=== PATIENT | female | born 1950 | race Caucasian/White ===

== ENCOUNTER 2018-08-18 12:26 | Emergency (ER) | payer MEDICARE ==
[2018-08-18 13:11] VITALS: BP 129/70
--- NOTE | 2018-08-18 14:47 | Ultrasound Report ---
Reason: pain behind knee and calf Procedure Date: 08/18/2018 Accession Number: [id number] / [id number] Procedure: US - Duplex Ext Veins Right CPT Code: FULL RESULT: EXAM: RIGHT LOWER EXTREMITY VENOUS ULTRASOUND EXAM DATE: 08/18/2018 02:12 PM. CLINICAL HISTORY: Pain behind knee and calf. COMPARISON: None. TECHNIQUE: Real-time sonographic vascular imaging was performed by the b2b sales executive through the lower extremity utilizing both color-flow and Doppler spectral analysis. Multiple operations support representative static images were saved for review. FINDINGS: Common Femoral Vein (CFV): Normal. CFV-GSV Junction: Normal. Profunda Femoral Vein (PFV): Normal. Femoral Vein (FV) Prox: Normal. Femoral Vein (FV) Mid: Normal. Femoral Vein (FV) Dist: Normal. Popliteal Vein: Normal. Posterior Tibial Veins: Normal. Peroneal Veins: Normal. Contralateral Side CFV: Normal. Other: None. IMPRESSION: No evidence for deep venous thrombosis. RADIA
--- NOTE | 2018-08-18 14:59 | ED Physician Documentation ---
PD HPI LOWER EXT INJURY - Stated complaint Stated Complaint: LEG/ KNEE PX - Chief complaint Chief Complaint: General - History obtained from History obtained from: Patient - History of Present Illness PD HPI LOW EXT INJURY LOCATION: Right, Knee Type of injury: No: Fall, Twist Timing - onset: How many weeks ago (couple of weeks of pain in back of knee, worse with walking. Hurting much more the past few days.) Timing - duration: Weeks Timing - details: Gradual onset, Still present, Waxing and waning Worsened by: Moving, Other (walking/weight bearing) Associated symptoms: No: Weakness, Numbness, Swelling Similar symptoms before: Has not had sx before Review of Systems Constitutional: denies: Fever, Chills Nose: denies: Rhinorrhea / runny nose, Congestion Throat: denies: Sore throat Respiratory: denies: Cough GI: denies: Nausea, Vomiting Skin: denies: Rash, Lesions Neurologic: denies: Focal weakness, Numbness PD PAST MEDICAL HISTORY - Past Medical History Respiratory: Pneumonia GI: GERD Psych: Depression - Past Surgical History Past Surgical History: Yes 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 - Present Medications Home Medications: Ambulatory Orders Medication Instructions Recorded Confirmed Omeprazole [PriLOSEC] 09/08/15 09/08/15 buPROPion [Wellbutrin Xl] 09/08/15 09/08/15 traZODone [Desyrel] 09/08/15 09/08/15 Dexamethasone [Decadron] 4 mg PO DAILY #5 tablet 08/18/18 Oxycodone HCl/Acetaminophen 1 each PO Q6H PRN #20 tablet 08/18/18 [Percocet 5-325 mg Tablet] - Allergies Allergies/Adverse Reactions: Allergies Allergy/AdvReac Type Severity Reaction Status Date / Time codeine Allergy Unknown Verified 08/18/18 13:11 meperidine HCl * Allergy Unknown Verified 08/18/18 13:11 [From Demerol] - Social History Does the pt smoke?: No Smoking Status: Never smoker Does the pt drink ETOH?: No Does the pt have substance abuse?: No PD ED PE NORMAL - Vitals Vital signs reviewed: Yes - General General: Alert and oriented X 3, No acute distress, Well developed/nourished - Back Back: No spinal TTP - Derm Derm: Normal color, Warm and dry, No rash - Extremities Extremities: No edema, Other (right back of knee with some tenderness. No swelling. Anterior knee without swelling, redness, nor effusion. No calf tenderness. ). No: Normal ROM s pain (hurts with full extension. Flexion does not hurt as much. ) - Neuro Neuro: Alert and oriented X 3, No motor deficit, No sensory deficit, Normal speech Results - Vitals Vitals: Oxygen O2 Source Room air - Rads (name of study) duplex leg Radiology: Prelim report reviewed (no DVT) xray knee right Radiology: Prelim report reviewed (mild to moderate arthritic changes; no acute) PD MEDICAL DECISION MAKING - ED course Complexity details: considered differential, d/w patient Departure - Departure Disposition: Home, Self Care Clinical Impression: Right knee pain Qualifiers: Chronicity: acute Qualified Code(s): M25.561 - Pain in right knee Condition: Stable Record reviewed to determine appropriate education?: Yes Instructions: ED Knee Pain [facility]O Follow-Up: Mars Eduardo MD [Primary Care Provider] - [facility] [Provider Group] Prescriptions: Dexamethasone [Decadron] 4 mg PO DAILY #5 tablet Oxycodone HCl/Acetaminophen [Percocet 5-325 mg Tablet] 1 each PO Q6H PRN #20 tablet PRN Reason: Pain Comments: Use a walker to help support the weight for the knee. There is some arthritis changes on the x-ray. There is no obvious fracture. We cannot see the ligaments and cartilage on the plain x-ray and I presume there is some inflammation of those. Continue some Aleve 2-3 tablets twice a day for the next several days. Add Decadron also an anti-inflammatory daily for 5 more days. At Percocet pain medicine if needed for pain. Follow-up with orthopedics if not improving over the next several days, call for an appointment. Discharge Date/Time: 08/18/18 17:00
[2018-08-18] MEDS ORDERED: ACETAMINOPHEN 325 MG TABLET PO STA (15:21)
[2018-08-18] MEDS ORDERED: KETOROLAC 30 MG/ML VIAL IM STA (15:21)
[2018-08-18] MEDS ORDERED: DEXAMETHASONE 10 MG/ML VIAL PO STA (15:21)
[2018-08-18] MEDS ORDERED: CHERRY SYRUP 10 ML UDC PO ONE (15:26)
--- NOTE | 2018-08-18 16:38 | XRAY Report ---
Reason: knee pain for few days Procedure Date: 08/18/2018 Accession Number: [id number] / [id number] Procedure: XR - Knee 3 View RT CPT Code: FULL RESULT: EXAM: RIGHT KNEE RADIOGRAPHY EXAM DATE: 08/18/2018 03:48 PM. CLINICAL HISTORY: Right knee pain. COMPARISON: KNEE 4 VIEW BILAT 07/30/2014 12:19 PM. TECHNIQUE: 3 views. FINDINGS: Bones: No fracture. Joints: Minimal to mild tricompartmental DJD is seen. No effusion. Soft Tissues: Unremarkable. IMPRESSION: No acute findings. RADIA
== END 2018-08-18 17:00 | disposition home or self-care (01) ==
LOC: ED 12:26
DX: M25.561 Pain in right knee (principal); Z96.659 Presence of unspecified artificial knee joint
CPT/HCPCS: 73562; 93971; 96372; 99283; A9270

== ENCOUNTER 2019-04-04 09:49 | Outpatient (CLI) | payer MEDICARE ==
[2019-04-04] MEDS ORDERED: GADOBUTROL 15 MMOL/15 ML VIAL IV ONE (11:35)
--- NOTE | 2019-04-04 17:12 | MRI Report ---
Reason: LUMBAR RADICULPATHY RIGHT Procedure Date: 04/04/2019 Accession Number: [id number] / [id number] Procedure: MRI - Lumbar Spine W/WO CPT Code: FULL RESULT: EXAM: MRI LUMBAR SPINE WITHOUT AND WITH CONTRAST EXAM DATE: 04/04/2019 11:30 AM. CLINICAL HISTORY: Right lumbar radiculopathy. Bilateral leg weakness. Tingling and numbness bilaterally. COMPARISONS: None. TECHNIQUE: Multiplanar, multisequence T1-weighted and fluid-sensitive sequences of the lumbar spine from T12 to S1 before and after administration of intravenous contrast. Other: None. IV contrast: 11.5 cc Gadavist. FINDINGS: A vertebral body hemangioma is seen at T12. No suspicious marrow replacement is present. Minimal grade 1 anterolisthesis of L4 relative to L5 is present. No abnormal signal or enhancement is present in the conus medullaris. L1-L2: Minimal posterior disk protrusion. L2-L3: Minimal posterior disk protrusion. L3-L4: There is a shallow far lateral protrusion on the right. L3-L4: There is a shallow far lateral protrusion on the right. Superior lateral recess narrowing is seen bilaterally. L4-L5: No posterior disk protrusion. Superior lateral recess narrowing is seen bilaterally. L5-S1: No posterior disk protrusion. Facet/ligamentum flavum hypertrophy which is moderate to severe is present in the mid and lower lumbar spine. IMPRESSION: 1. Minimal degenerative disk disease at L1-L2, L2-L3, and L3-L4. 2. No central canal or foraminal stenosis. 3. Moderate to severe facet/ligamentum flavum hypertrophy is seen in the mid and lower lumbar spine. Comment: The following findings are so common in adults without low back pain that while we report their presence, they must be interpreted with caution and in the context of the clinical situation. (Reference Louisak et al, Spine 2001) Prevalence of findings in patients without low back pain: Disk degeneration (any evidence): 92% Disk desiccation/T2 signal loss: 83% Disk height loss: 56% Disk bulge: 64% Disk protrusion: 32% Annular tear/high intensity zone: 38% RADIA
== END 2019-04-04 09:50 | disposition home or self-care (01) ==
LOC: DI 09:49
PROVIDERS: ATTEND Specialist
DX: M51.16 Intervertebral disc disorders with radiculopathy, lumbar region (principal)
CPT/HCPCS: 72158

== ENCOUNTER 2020-07-15 13:14 | Outpatient (CLI) | payer MEDICARE ==
--- NOTE | 2020-07-15 16:50 | SLEEP CARE CONSULTATION ---
Information from patient questionnaire entered by Magdalena Haji. I have reviewed and concur with the information entered by Magdalena Haji. This document represents the service I personally performed and the decisions made by me, Ata Jo MD, [facility]. History of Present Illness Service Date and Time: 07/15/2020 1314 Reason for Visit: New patient Chief Complaint: reports: Unrefreshed sleep, Fatigue, Frequent awakenings at night Date of Onset: years - a long time Usual bedtime: 2300 Time it takes to fall asleep: minutes Snores at night: Yes (sometimes) Observed to quit breathing while asleep: No Number of times waking at night: 2 Reasons for waking at night: reports: Bathroom, Other (get comfortable, remake bed, take sleep clothers off) Recalls having dreams: Yes Usually gets out of bed at: 0730 Feels refreshed in the morning: No Morning headache: No Sleepy or fatigued during the day: Yes Ever fallen asleep while driving: No Takes day naps: Yes (sometimes) Dreams during day naps: No Prior sleep studies: No Additional HPI information: I had the pleasure of seeing Ms. Lucio today regarding the possibility of her having a sleep disorder. As you know, she is a 69 year old lady who complains of frequent awakenings, unrefreshed sleep, and persistent fatigue for the past several years. The patient tells me that she normally goes to bed around 11 pm, and it takes her approximately just a few minutes to fall asleep. She takes trazodone and diphenhydramine nightly. She was first prescribed with trazodone over 10 years ago. The few times she tried to not take the medication, she lay awake all night. She snores occasionally. She has never been observed to stop breathing in her sleep. Her spouse has to sleep in a separate room because he snores loudly. She can recall waking up on the average of 2 times during the night. Most of the time she wakes up because of having to use the bathroom. She has awakened occasionally because of her own snoring, choking, and having to gasp for air. There is not a lot of tossing and turning in her sleep. No somniloquy (sleep talking) or somnambulism (sleep walking). Generally she can recall having dreams. In the morning she usually gets up out of the bed around 7:30 a.m. not feeling refreshed nor rested. She usually does not have a morning headache. During the day she complains of feeling sleepy and fatigued. Her score on Albertson Sleepiness Scale is 6 out of 24. She has never fallen asleep while driving nor has had any accident due to sleepiness. She usually does not take naps during the day. Upon falling asleep during the day she denies having vivid dreams. She has never had sleep paralysis, experienced cataplexy but reports symptoms of restless leg syndrome. She denies having impaired concentration during the day. Subjective Initial Albertson Sleepiness Scale score: 6 (in 2019) Past Medical History Past Medical History: reports: Claustrophobia, Anxiety, Depression, GERD Social History The patient's occupation is retired. Patient is and lives in [place]. Have you smoked in the past 12 months: No Alcohol use: No Caffeine use: Yes Caffeine amount and frequency: 3 big cups Allergies and Home Medications Drug allergies reviewed: Yes (codeine) Home medication list reviewed: Yes (bupropion, trazodone, diphenhydramine) Review of Systems Weight loss over past 5 years: 40 Cardiovascular: reports: chest pain (due to reflux) Respiratory: reports: shortness of breath, chronic cough (every morning) Gastrointestinal: reports: heartburn Urinary: denies: incontinence, frequency, urgency, impotence, other Neurological: reports: gait or balance problems (*balance) Psychiatric: reports: anxiety, depression, claustrophobia Ear/Nose/Throat: reports: hoarseness, tonsillectomy (1973), wisdom teeth removed Endocrine: reports: sluggishness, too hot or cold Musculoskeletal: reports: joint pain, neck pain, back pain, muscle pain or cramping (at night back of thigh cramping) Immunologic: reports: sneezing, allergies to food or environment (spring) Physical Exam Vital signs obtained and entered by: To minimize the risk of COVID-19 exposure, detailed exam was not performed. Height: 5 ft 6 in Impression and Plan IMPRESSION: 1. Obstructive Sleep Apnea-Hypopnea Syndrome, as suggested by history of snoring, unrefreshed sleep, and fatigue. Narrow oropharynx and obesity are common predisposing factors for obstructive sleep apnea-hypopnea syndrome. Pathophysiology of sleep-disordered breathing was discussed. I recommend proceeding to polysomnography to confirm the diagnosis and to assess severity. If she has significant sleep disordered breathing, a manual CPAP titration study will also be performed to find the optimal treatment pressure. I informed the patient of what the sleep studies involve and after some discussion, she agreed to proceed. 2. Insomnia, partly due to excessive time spent in bed. She also has dependency on trazodone and [id number] diphenhydramine. Stopping the medications abruptly can cause temporary insomnia, especially when the underlying habits have not been changed. I recommend she first limit time spent in bed to 7.5 hoursthe same amount she was able to function fine when working. This means getting out of bed no later than 6:30 am. Once the new sleep-wake schedule is established, the medications can come off slowly over weeks/months. Plan: 1. Schedule an in-laboratory polysomnography. 2. Go to bed the same time at 11 pm but get up no later than 6:30 am. 3. Continue with trazodone and diphenhydramine for the time being. 4. Attempt to lose weight. 5. Return in 1 to 2 weeks after the study to discuss results and initiate therapy. Visit Type: In Office Time Spent with Patient (minutes): 15 Provider Statement: I spent 100% of the Face to Face Visit with the patient with greater than 50% spent counseling the patient and coordination of care.
== END 2020-07-15 13:15 | disposition home or self-care (01) ==
LOC: SC 13:14
PROVIDERS: ATTEND Internal Medicine Pulmonary Disease
DX: G47.00 Insomnia, unspecified (principal); R06.83 Snoring; R53.83 Other fatigue; G47.8 Other sleep disorders
CPT/HCPCS: 99203; G0463; 99212

== ENCOUNTER 2021-09-08 08:15 | Outpatient (CLI) | payer MEDICARE ==
--- NOTE | 2021-09-08 09:03 | XRAY Report ---
PROCEDURE: Foot 3 View BILAT INDICATIONS: PAIN IN LEFT AND RIGHT FOOT TECHNIQUE: 3 views of the foot were acquired. COMPARISON: None FINDINGS: Bones: No fractures or dislocations. No suspicious bony lesions. Mild to moderate scattered IP gilson nt space narrowing. No erosions. No periarticular osteophytes. Appearance is relatively symmetric. Soft tissues: No tibiotalar joint effusion. Achilles tendon appears normal. IMPRESSION: Mild to moderate arthritic IP joint space narrowing as above. Reviewed by: Connie Linda MD on 09/08/2021 9:02 AM PST Approved by: Connie Linda MD on 09/08/2021 9:02 AM PST Station ID: [id number]
== END 2021-09-08 08:16 | disposition home or self-care (01) ==
LOC: DI 08:15
PROVIDERS: ATTEND Physician Assistant
DX: M19.072 Primary osteoarthritis, left ankle and foot (principal); M19.071 Primary osteoarthritis, right ankle and foot

== ENCOUNTER 2022-02-08 07:08 | Outpatient (CLI) | payer MEDICARE ==
--- NOTE | 2022-02-08 14:51 | XRAY Report ---
PROCEDURE: Shoulder 3 View LT INDICATIONS: L SHOULDER PAIN TECHNIQUE: 3 views of the shoulder were acquired. COMPARISON: None. FINDINGS: Bones: No fractures or dislocations. Mild AC joint hypertrophy. Subacromial spur. Mild glenohumeral joint degenerative change. No suspicious bony lesions. Visualized ribs appear intact. Soft tissues: No suspicious soft tissue calcifications. IMPRESSION: AC joint hypertrophy, subacromial spur, glenohumeral joint degenerative change. No evide nce acute bony abnormality of the left shoulder. If clinical suspicion and/or symptoms persist, further assessment with repeat plain films or advanced imaging (e.g., CT, MRI, or bone scan) may be helpful for further assessment. Reviewed by: Jimy Tucker MD on 02/08/2022 2:49 PM PDT Approved by: Jimy Tucker MD on 02/08/2022 2:49 PM PDT Station ID: [id number]
== END 2022-02-08 07:09 | disposition home or self-care (01) ==
LOC: DI 07:08
PROVIDERS: ATTEND Internal Medicine
DX: M19.012 Primary osteoarthritis, left shoulder (principal); M75.92 Shoulder lesion, unspecified, left shoulder; M89.412 Other hypertrophic osteoarthropathy, left shoulder

== ENCOUNTER 2022-09-21 12:38 | Outpatient (CLI) | payer MEDICARE ==
--- NOTE | 2022-09-21 13:35 | CT Report ---
PROCEDURE: HEAD WO INDICATIONS: FALL ON HEAD, HEAD PAIN TECHNIQUE: Noncontrast 4.5 mm thick angled axial sections acquired from the foramen magnum to the vertex. For r adiation dose reduction, the following was used: automated exposure control, adjustment of mA and/or kV according to patient size. COMPARISON: None. FINDINGS: Image quality: Excellent. CSF spaces: Basal cisterns are patent. No extra-axial fluid collections. Ventricles are normal in size and shape. Brain: No midline shift. No intracranial masses or hemorrhage. Gale-white matter interface is norm al. Subcortical and periventricular hypodensities are consistent with microvascular ischemic dis ease and age-related cerebral volume loss. Skull and face: Calvarium and visualized facial bones are intact, without suspicious lesions. Sinuses: Visualized sinuses and mastoids are clear. IMPRESSION: 1. No acute intracranial abnormality. 2. Microvascular ischemic disease and age-related cerebral volume loss. Reviewed by: Mamadou Piedra on 09/21/2022 1:34 PM [facility] Approved by: Mamadou Piedra on 09/21/2022 1:34 PM [facility] Station ID: [id number]
--- NOTE | 2022-09-21 13:39 | XRAY Report ---
PROCEDURE: Cervical Spine Complete INDICATIONS: FALL ON HEAD, HEAD PAIN TECHNIQUE: 4 views of the cervical spine acquired. COMPARISON: None. FINDINGS: Bones: No fractures or dislocations to the vertebra level. Oblique images demonstrate no bony fora esdras stenoses. Multilevel degenerative changes with anterior osteophytes at multiple levels with lar ge osteophytes at C4-5 which protrude anteriorly. There is facet arthrosis of the cervical spine. Soft tissues: No prevertebral soft tissue swelling. IMPRESSION: 1. Multilevel degenerative changes of the cervical spine as detailed above. 2. No acute abnormality. Reviewed by: Mamadou Piedra on 09/21/2022 1:38 PM PST Approved by: Mamadou Piedra on 09/21/2022 1:38 PM [facility] Station ID: [id number]
== END 2022-09-21 12:39 | disposition home or self-care (01) ==
LOC: DI 12:38
PROVIDERS: ATTEND Student in an Organized Health Care Education/Training Program
DX: S09.90XA Unspecified injury of head, initial encounter (principal); R51.9 Headache, unspecified; G31.89 Other specified degenerative diseases of nervous system; I67.82 Cerebral ischemia; M47.812 Spondylosis without myelopathy or radiculopathy, cervical region

== ENCOUNTER 2022-09-21 12:40 | Outpatient (CLI) | payer MEDICARE ==
--- NOTE | 2022-09-23 09:48 | Mammography Report ---
BILATERAL DIGITAL SCREENING MAMMOGRAM 3D/2D: 09/21/2022 CLINICAL: Routine screening. Comparison is made to exams dated: 07/30/2014 mammogram, 12/27/2011 mammogram, and 09/15/2009 mammogr am - [facility]. There are scattered areas of fibroglandular density in both breasts (category b / 25%-50% glandular t issue). No significant masses, calcifications, or other findings are seen in either breast. There has been no significant interval change. IMPRESSION: NEGATIVE There is no mammographic evidence of malignancy. A 1 year screening mammogram is recommended. Based on the Tyrer Cuzick model (a risk assessment model) the patients lifetime risk is 6.2% and her 10 year risk is 3.6%. According to the ACR, ACS, and NCCN guidelines, an annual breast MRI exam ellen g with mammogram is recommended if the patients lifetime risk is 20% or greater. This exam was interpreted at Station ID: [id number]. NOTE: For mammograms, a report in lay terms will be sent to the patient. Approximately 15% of breast malignancies will not be visualized mammographically. In the management of a palpable breast mass, a negative mammogram must not discourage biopsy of a clinically suspicious lesion. Electronically Signed By: Kassi de jesus/shar:09/22/2022 12:12:45 ACR BI-RADS Category 1: Negative 3341F PARENCHYMAL PATTERN: (A) - The breast(s) demonstrate(s) scattered fibroglandular densities. BI-RADS CATEGORY: (1) - 1 RECOMMENDATION: (ANNUAL) - Recommend routine annual screening mammography. [id number] 1 year screening LATERALITY: (B)
== END 2022-09-21 12:41 | disposition home or self-care (01) ==
LOC: DI 12:40
PROVIDERS: ATTEND Physician Assistant
DX: Z12.31 Encounter for screening mammogram for malignant neoplasm of breast (principal)

== ENCOUNTER 2023-06-15 08:00 | Outpatient (CLI) | payer MEDICARE ==
[2023-06-15 20:39] LABS: BACTERIAL VAGINOSIS DNA NEGATIVE (NEGATIVE); CANDIDA KRUSEI DNA NEGATIVE (NEGATIVE); TRICHOMONAS VAGINALIS DNA NEGATIVE (NEGATIVE)
[2023-06-15 20:40] LABS: CANDIDA GLABRATA DNA NEGATIVE (NEGATIVE); CANDIDA GROUP DNA NEGATIVE (NEGATIVE)
== END 2023-06-15 23:59 | disposition home or self-care (01) ==
LOC: LAB.WC 08:00
PROVIDERS: ATTEND Obstetrics & Gynecology
DX: N95.2 Postmenopausal atrophic vaginitis (principal)
CPT/HCPCS: 81514

== ENCOUNTER 2024-01-10 06:39 | Outpatient (CLI) | payer MEDICARE ==
--- NOTE | 2024-01-10 08:49 | Ultrasound Report ---
PROCEDURE: Soft Tissue Head or Neck INDICATIONS: GOITER TECHNIQUE: Real-time scanning was performed of the thyroid gland, with image documentation. COMPARISON: None FINDINGS: Right: Thyroid lobe measures 5.6 x 1.2 x 1.5 cm, and is homogeneous in echotexture. Left: Thyroid lobe measures 5.1 x 1.1 x 1.5 cm, and is homogenous in echotexture. Isthmus: 0.2 cm thick. Spongiform versus partial solid cystic hypoechoic nodule is seen in the left upper region measuring 1 0 x 7 mm. Margins are smooth. No echogenic foci. TR 3 (conservatively). No dedicated follow-up is req uired. IMPRESSION: No thyroid nodules identified that requires follow-up or sampling per TI RADS criteria. ACR TI-RADS definitions and recommendations: TI-RADS 1 (benign): 0 points. FNA not needed. TI-RADS 2 (not suspicious): 2 points. FNA not needed. TI-RADS 3 (mildly suspicious): 3 points. "FNA if 2.5 cm or larger, follow up if 1.5 cm or larger (at 1, 3, and 5 years). TI-RADS 4 (moderately suspicious): 4-6 points. "FNA if 1.5 cm or larger, follow up if 1 cm or larger (at 1, 2, 3, and 5 years). TI-RADS 5 (highly suspicious): 7 points or more. "FNA if 1 cm or larger, follow up if 0.5 cm or larger (every year for 5 years). Reviewed by: Michael Naidu MD on 01/10/2024 8:47 AM PDT Approved by: Michael Naidu MD on 01/10/2024 8:47 AM PDT Station ID: [id number]
== END 2024-01-10 06:40 | disposition home or self-care (01) ==
LOC: DI 06:39
PROVIDERS: ATTEND Physician Assistant
DX: E04.2 Nontoxic multinodular goiter (principal)

== ENCOUNTER 2024-05-21 12:39 | Outpatient (CLI) | payer MEDICARE ==
--- NOTE | 2024-05-22 07:46 | Mammography Report ---
BILATERAL DIGITAL SCREENING MAMMOGRAM 3D/2D: 05/21/2024 CLINICAL: Routine screening. Comparison is made to exams dated: 09/21/2022 mammogram - [facility], 03/15/2018 ju mogram - [facility], and 07/30/2014 mammogram - [facility]. There are scattered areas of fibroglandular density in both breasts (category b / 25%-50% glandular t issue). No significant masses, calcifications, or other findings are seen in either breast. There has been no significant interval change. IMPRESSION: NEGATIVE There is no mammographic evidence of malignancy. A 1 year screening mammogram is recommended. Based on the Tyrer Cuzick model (a risk assessment model) the patient's lifetime risk is 5.5% and her 10 year risk is 3.8%. According to the ACR, ACS, and NCCN guidelines, an annual breast MRI exam ellen g with mammogram is recommended if the patient's lifetime risk is 20% or greater. This exam was interpreted at Station ID: [id number]. NOTE: For mammograms, a report in lay terms will be sent to the patient. Approximately 15% of breast malignancies will not be visualized mammographically. In the management of a palpable breast mass, a negative mammogram must not discourage biopsy of a clinically suspicious lesion. Electronically Signed By: Rell vaughn/shar:05/21/2024 15:29:12 letter sent: No_Letter ACR BI-RADS Category 1: Negative 3341F PARENCHYMAL PATTERN: (A) - The breast(s) demonstrate(s) scattered fibroglandular densities. BI-RADS CATEGORY: (1) - 1 RECOMMENDATION: (ANNUAL) - Recommend routine annual screening mammography. [id number] 1 year screening LATERALITY: (B)
== END 2024-05-21 12:40 | disposition home or self-care (01) ==
LOC: DI 12:39
PROVIDERS: ATTEND Physician Assistant
DX: Z12.31 Encounter for screening mammogram for malignant neoplasm of breast (principal); R92.323 Mammographic fibroglandular density, bilateral breasts

== ENCOUNTER 2024-05-21 12:39 | Outpatient (CLI) | payer MEDICARE ==
--- NOTE | 2024-05-21 20:44 | DEXA Report ---
PROCEDURE: Dexa Spine and/or Hip INDICATIONS: POST MENOPAUSAL TECHNIQUE: Dual energy x-ray absorptiometry (DXA) was performed on a [employer] System. Regions measur ed are the AP Spine, femoral neck, and if needed forearm. COMPARISON: None FINDINGS: Lumbar Spine: Bone Mineral Density: 1.386 g/cm/cm,T score: 1.7. Left Femoral Neck: Bone Mineral Density: 0.949 g/cm/cm, T score: -0.6. Left Hip: Bone Mineral Density: 0.942 g/cm/cm,T score: -0.5. FRAX risk factors: None given. (T score greater or equal to -1.0: NORMAL) (T score from -1.1 to -2.4: OSTEOPENIA) (T score less than or equal to -2.5 to: OSTEOPOROSIS) Impression: By WHO criteria, this patient has normal bone density. Patients with diagnosis of osteoporosis or osteopenia should have regular bone mineral density assess ment. For those eligible for Medicare, routine testing is allowed once every 2 years. Testing frequ ency can be increased for patients who have rapidly progressing disease or for those who are receivin g medical therapy to restore bone mass. Reviewed by: Adan Duran MD on 05/21/2024 8:42 PM PDT Approved by: Adan Duran MD on 05/21/2024 8:42 PM PDT Station ID: [id number]
== END 2024-05-21 12:40 | disposition home or self-care (01) ==
LOC: DI 12:39
PROVIDERS: ATTEND Physician Assistant
DX: N95.8 Other specified menopausal and perimenopausal disorders (principal)